=== PATIENT | female | born 1950 | race Caucasian/White ===

== ENCOUNTER 2023-06-01 08:42 | Outpatient (CLI) | payer MEDICAID, SELFPAY | END 2023-06-01 08:43 | disposition home or self-care (01) | LOC: NFLDREF 06-03 07:28 | PROVIDERS: PCP Registered Nurse; Visit Provider Registered Nurse | DX: N30.01 Acute cystitis with hematuria (principal); B96.20 Unspecified Escherichia coli [E. coli] as the cause of diseases classified elsewhere | CPT/HCPCS: 87086; 87186 ==

== ENCOUNTER 2024-02-04 09:57 | Day surgery (SDC) | payer MEDICARE, SELFPAY ==
[2024-02-04] VITALS (13 sets, daily range): BP systolic 138–176; BP diastolic 77–88; PULSE 58–79; RESP 12–23; TEMP 36.2–37.1; O2SAT 96–100; BMI 30.6
[2024-02-04] MEDS: SODIUM CHLORIDE 0.9 % (FLUSH) 10 ML SYRINGE IVF (10:29)
[2024-02-04] MEDS: CEFAZOLIN 2 GM INJ IVP (12:08)
--- NOTE | 2024-02-04 12:38 | W.ANESCHARGE ---
Anesthesia Charges Start Date/Time Anesthesia Start Date: 02/04/24 Anesthesia Start Time: 11:54 Stop Date/Time Anesthesia Stop Date: 02/04/24 Anesthesia Stop Time: 12:56 Summary Extremes of Age - Over 70 or under 1: MDA
[2024-02-04] MEDS: BUPIVACAINE 0.25% 30 ML INJECTION (12:45)
--- NOTE | 2024-02-04 12:52 | P.ORPRC_ITS ---
Procedure Note Date of procedure: 02/04/24 Procedure: PREOPERATIVE DIAGNOSIS: Left knee medial and lateral meniscus tear POSTOPERATIVE DIAGNOSIS: Left knee medial and lateral meniscus tear, inflammatory synovitis NAME OF OPERATION: Left knee arthroscopic partial medial and lateral m eniscectomy, extensive synovectomy SURGEON: Wisam Marie MD [employer] OPERATOR: Diana Black PA-C ANESTHESIA: Spinal ESTIMATED BLOOD LOSS: 0 mL COMPLICATIONS: None SPECIMENS: None DRAINS: None PREOPERATIVE ANTIBIOTICS: Ancef 2 gram INDICATIONS: The patient is a 73-year-old with a history of left knee pain. MRI scan is consistent with a medial and lateral meniscus tear. Despite appro priate nonoperative management, including activity modification, antiinflammatories, [id number] pain medication, bracing, physical therapy, and injections they continue to have pain and disability. Operative intervention was offered. The risks, benefits and expected outcomes were discussed in detail. These included but were not limited to: Infection, bleeding, injury to blood vessel or nerve, venous thromboembolism. All questions were answered to their satisfaction. PROCEDURE: Spinal anesthesia was administered. The patient was placed supine on the operating room table. The left lower extremity was prepped and draped in the usual sterile fashion. The limb was exsanguinated with the Jay bandage. The pneumatic tourniquet was inflated to 300 mmHg. A standard anterolateral portal was established. The arthroscope was introduced. Cloudy, yellow inflammatory looking synovial fluid was obtained. The working portal was established anteromedially. Diagnostic arthroscopy was performed with findings as follows: The suprapatellar pouch is full of hyperemic synovitis. Articular surface on the patella is normal. Articular surface on the trochlea is normal. The medial gutter is full of hyperemic synovitis. The medial compartment shows normal articular cartilage on the medial femoral condyle and medial tibial plateau. The medial meniscus has a complex degenerative tear of the posterior horn, midbody into the anterior horn. There is a parrot-beak tear at the junction of the midbody and anterior horn with an anteriorly based unstable flap. There is undersurface horizontal cleavage tearing of the midbody and posterior horn. The notch shows the ACL to be intact, with hyperemic synovitis anterior to its insertion. The lateral compartment shows normal articular cartilage on the lateral femoral condyle and lateral tibial plateau. The lateral meniscus has a complex degenerative tear of the posterior horn, into the midbody. This primarily consists of undersurface horizontal cleavage tearing. The tissue quality is quite poor. The posterior tibial attachment is detached. The posterior horn remains well attached to the capsule. The lateral gutter is no rmal. The posterior horn, midbody and anterior horn of the medial meniscus was debrided to a stable base with a shaver in each portal. Likewise, the undersurface of the midbody and posterior horn of the lateral meniscus was debrided with the shaver through both portals. An extensive synovectomy was done through both portals debriding the hyperemic synovitis in medial and lateral gutters, the suprapatellar pouch and in the anterior aspect of the knee as well. Arthroscopic instruments were removed, the portal sites were Steri-Stripped closed, the knee was infiltrated with 30 mL of 0.25% Marcaine without epinephrine. A dry dressing was applied, the tourniquet was released. Sponge and needle counts were correct x 2. The patient tolerated the procedure well. There were no apparent complications. They were carefully transferred to the hospital bed and taken to the postanesthesia care unit in satisfactory condition. PLAN: The patient will be discharged to home. They may weightbear as tolerates. Range of motion will be unrestricted. They will follow up in the office next week for a wound check.
--- NOTE | 2024-02-04 12:57 | W.ANESCHARGE ---
Anesthesia Charges Start Date/Time Anesthesia Start Date: 02/04/24 Anesthesia Start Time: 11:54 Stop Date/Time Anesthesia Stop Date: 02/04/24 Anesthesia Stop Time: 12:56
--- NOTE | 2024-02-04 13:04 | SUR.PHASEI ---
Patient came into the PACU awake and talking, No pain and no nausea at this time.
--- NOTE | 2024-02-04 13:28 | SUR.PHASEI ---
Patient meets anesthesia discharge criteria from PACU. Pain level still a 4, refusing medication. Patient states she rarely takes even aspirin or tylenol
[2024-02-04] MEDS: OxyCODONE/APAP 5-325 TABLET 1 TAB PO (13:55)
[2024-02-04] MEDS: hydrOXYzine pamoate 25 MG CAPSULE PO (14:03)
== END 2024-02-04 14:46 | disposition home or self-care (01) ==
LOC: OR 09:58
PROVIDERS: PCP Family Medicine; Visit Provider Orthopaedic Surgery
PROC: (CPT 29870; principal; 2024-02-04 11:15)
DX: M23.252 Derangement of posterior horn of lateral meniscus due to old tear or injury, left knee (principal); M23.222 Derangement of posterior horn of medial meniscus due to old tear or injury, left knee; M65.862 Other synovitis and tenosynovitis, left lower leg
CPT/HCPCS: 29880; 29876; 01400; 99100; A9270; J0665; J0690; J1100